=== PATIENT | female | born 1975 | race Caucasian/White ===

== ENCOUNTER → 2018-03-15 12:24 | Outpatient (CLI) | payer MEDICAID, SELFPAY ==
[2018-03-15 13:41] LABS: Color, Urine Yellow (Yellow); Glucose, Dipstick Normal (Normal); Ketone-Dipstick Negative (Negative); Leukocyte Esterase-Dipstick 500 /ul (Negative); Nitrite-Dipstick Negative (Negative); Occult Blood-Urine Negative /ul (Negative); Protein-Dipstick Negative (Negative); Specific Gravity, Urine 1.015 (1.002-1.030); Urine Bilirubin Dipstick Negative (Negative); Urine Clarity Sl. Cloudy (Clear); Urine Urobilinogen Normal (Normal); Urine pH 6.5 (5.0 - 8.0)
[2018-03-15 13:42] LABS: Absolute Lymphocyte Count 1.59 X10^3/ul (0.83-4.51); Absolute Neutrophil Count 9.1 X10^3/uL (2.0-7.7); Basophil# 0.02 X10^3/uL; Basophil% 0.2 % (0-1); Eosinophil# 0.15 X10^3/uL; Eosinophils% 1.3 % (0-5); Hematocrit 36.5 % (37-47); Hemoglobin 11.5 g/dl (12.0-15.0); Lymphocyte # 1.59 X10^3/ul (4.0); Lymphocyte % 13.8 % (19-41); Mean Corp Hgb Conc 31.5 g/gl (32-36); Mean Corpuscular Hgb 25.3 pg (27.0-32.0); Mean Corpuscular Volume 80.4 fL (81-99); Mean Platelet Vol. 10.9 fl (6.2-12.0); Monocyte# 0.71 X10^3/uL; Monocyte% 6.1 % (0-10); Neutrophil # 9.08 X10^3/uL (2.7-7.7); Neutrophil % 78.5 % (47-70); Platelet Count 299 K/mm3 (150-450); RBC Distribution Width CV 16.3 % (11.6-14.6); RBC Distribution Width SD 47.8 fl (35.1-43.9); Red Blood Count 4.54 M/mm3 (4.2-5.4); White Blood Count 11.6 K/mm3 (4.4-11.0)
[2018-03-15 13:43] LABS: POSITIVE COUNT NO; POSITIVE DIFFERENTIAL NO; POSITIVE MORPHOLOGY NO
[2018-03-15 13:48] LABS: Amphetamine Urine VISTA NEGATIVE (<1000 ng/mL); Barbiturate Urine VISTA NEGATIVE (< 200 ng/mL); Benzodiazepine Urine VISTA NEGATIVE (< 200 ng/mL); Cocaine Urine VISTA NEGATIVE (< 300 ng/mL); Ecstacy Urine VISTA NEGATIVE (< 500 ng/mL); Methadone Urine VISTA NEGATIVE (< 300 ng/mL); PCP Urine VISTA NEGATIVE (< 25 ng/mL); THC Urine VISTA NEGATIVE (< 50 ng/mL); Vista UDS pH Range 6
[2018-03-15 14:05] LABS: T4 Free Direct 1.18 ng/dL (0.76-1.46); Thyroid Stim Hormone (TSH) 8.27 uIU/mL (0.358-3.74)
[2018-03-15 14:46] LABS: HIV - WCH Non-Reactive (Nonreactive); Rubella IgG 42.5 IU/mL
[2018-03-15 17:45] LABS: Vitamin D,25 Hydroxy 25.3 ng/mL (29.95-100.01)
[2018-03-15 18:49] LABS: Chlamydia Trachomatis by PCR Negative (Negative); Neisserai gonorrhoeae by PCR Negative (Negative); Probe Check PASS; Sample Adequacy Control PASS; Specimen Processing Control PASS
[2018-03-19 09:54] LABS: Anti-Thyroglobulin AB < 1.0 IU/mL (0.0-0.9); HEPATITIS B SURFACE AG Negative (Negative); Hep C Antibodies <0.1 s/co ratio (0.0-0.9); Thyroglobulin, Serum Qt. < 0.1 ng/mL (1.5-38.5)
[2018-03-22 02:32] LABS: Prenatal RPR NONREACTIVE (NONREACTIVE)
--- OUTSIDE RECORDS SUMMARY | 2018-05-10 11:03 | XMS RPT_ITS ---
:1975 Author Organization OHIP Care Team Providers Name Role Phone ABE RANGEL Attending Unavailable Brunilda Lovelace Attending Unavailable Brunilda Lovelace Referring Unavailable Primay Care Physicia, No Primary Care Unavailable ABE RANGEL Consulting Unavailable Earnestine-Brunilda Don Attending Unavailable Primay Care Physicia, No Primary Care Unavailable PROBLEMS PROBLEMS DATE TYPE CONDITION / CODE ATTENDING STATUS SOURCE 03/22/2018 Unknown D64.9 - Anemia, [place], Active [place] unspecified / [facility] D64.9(ICD-10) Hospital Repository 03/15/2018 Unknown Z34.81 - Encounter [place] Active [place] for supervision of [facility] other normal Hospital , first Repository trimester / Z34.81(ICD-10) 03/15/2018 Unknown E03.9 - [place], Active [place] Hypothyroidism, [facility] unspecified / Hospital E03.9(ICD-10) Repository 03/15/2018 Unknown C73 - Malignant [place], Active [place] neoplasm of thyroid [facility] gland / C73(ICD-10) Hospital Repository 03/15/2018 Unknown Z11.3 - Encounter [place] Active [place] for screening for [facility] infections with a Hospital predominantly Repository sexual mode of transmission / Z11.3(ICD-10) PROCEDURES PROCEDURES No Procedure Records FoundRESULTS RESULTS IRON+IRON BINDING Collected: 03/22/2018 Status: F Source: [facility] 3:15 PM [facility] Order Comment: Comments: N TYPE CODE TESTS RESULT OUT OF RANGE REFERENCE UNITS LAB L503.6075 250-450 ug/dL TIBC Normal 398 LAB L503.6150 50-170 ug/dL IRON Normal 57 LAB L503.6250 15.0-55.0 % Low IRON SATURATION 14.3 Performed By: #### L503.6030, L503.6550 #### [facility] [address] [place], [place], [address] FERRITIN Collected: 03/22/2018 Status: F Source: [facility] 3:15 PM [facility] Order Comment: Comments: N TYPE CODE TESTS RESULT OUT OF REFERENCE UNITS RANGE LAB L503.6550 8-252 ng/mL Low FERRITIN 7 Performed By: #### L503.6030, L503.6550 #### [facility] [address] [place], [place], [address] HEMOGLOBINOPATHY PROFILE Collected: 03/22/2018 Status: F Source: [facility] 3:15 PM [facility] Order Comment: Comments: N TYPE CODE TESTS RESULT OUT OF REFERENCE UNITS RANGE LAB L3300.220 Negative 5 HGB SOLUBILITY Normal Negative LAB L3300.221 96.4-98.8 % 0 Hgb A Normal 97.7 LAB L3300.223 0.0 % 0 Hgb S 0 Normal LAB L3300.224 0.0 % 0 Hgb C 0 Normal LAB L3300.225 1.8-3.2 % 0 Hgb A2 Normal 2.3 LAB L3300.225 0.0-2.0 % 5 Hgb F 0 Normal LAB L3300.226 . 5 HGB VARIANT Normal Test not performed LAB L3300.227 . 5 INTERPRETATION Normal Comment Result Comment: Normal adult hemoglobin present. Performed By: #### L3300.2202, L3400.3800 #### [facility] (refer to report for specific site) refer to report for address and phone number TRANSFERRIN Collected: 03/22/2018 Status: F Source: [facility] 3:15 PM [facility] Order Comment: Comments: N TYPE CODE TESTS RESULT OUT OF RANGE REFERENCE UNITS LAB L3400.3800 200-370 mg/dL Normal TRANSFERRN 4937 323 Result Comment: Performed at: - [facility] [address] [id number] Escalator Mechanic: Ever Slade PhD, Phone: [phone] Performed By: #### L3300.2202, L3400.3800 #### [facility] (refer to report for specific site) refer to report for address and phone number CNPN Observed: 03/18/2018 Status: COMPLETED Source: [place] 12:00 AM [facility] REPOSITORY Telephone ([employer]) SHILPA VALERA ([id number]) 1975 F Date Time Provider Department 03/18/18 ABE RANGEL During your visit today, we recorded the following information about you: Last [place] Ma 03/18/2018 11:21 AM Signed Received outside lab results from [facility]. Placed in Dr. Rangel's in box for review. Abe Rangel MD, MD 03/18/2018 1:09 PM Signed Call and tell to increase levothyroxine from 0.137 mg to 0.15 mg daily. Check TSH again in 6-8 weeks, please mail lab letter. Thanks. The following approved medication requests have been transmitted electronically. Signed Prescriptions Disp Refills levothyroxine (SYNTHROID) 150 mcg tablet 90 tablet 3 Sig: Take 1 tablet by mouth once daily. Authorizing Provider: ABE RANGEL MD Nicole Jelar Ma 03/18/2018 1:49 PM Signed Called and spoke with patient, and she wanted to inform you that she is . She had a visit with her Party Plan Sales Agent and she looked at labs as well and she agreed with increase. Do you still want her to start the new RX? If you agree no need to call patient. Only call patient if we want to change something. Mailed lab letter Abe Rangel MD, 03/20/2018 10:20 AM Signed Yes go ahead and increase the dose but get repeat blood test in April (one month). Send new lab letter printed today. Sylvia Stock RN 03/20/2018 10:43 AM Signed Notified patient of Dr Rangel's message. Patient verbalized understanding. Printed and mailed lab slip to the home address. Encounter closed. Sylvia Stock RN 03/21/2018 9:14 AM Signed Received a VM on nurses line from Dr Don (OBGYN) regarding whether this patient's Levothyroxine has been increased. Called and left a detailed VM on her cell at [phone] that the patient's dose has been increased and the patient was notified of this yesterday it is now at 150 mcg daily. She will need repeat labs in April 2018. Allergies As of Date: 03/18/2018 Noted Allergy Reaction PENICILLINS 04/20/2010 16 - Unknown VANCOMYCIN 04/20/2010 16 - Unknown Date Reviewed: 12/28/2017 Reviewed by: Priscila Shipley Ma - Fully Assessed Reason for Visit: Outside Lab Results [753] Cmt: [facility] Primary Visit Diagnosis:Postsurgical hypothyroidism [E89.0] Order(s):levothyroxine (SYNTHROID) 150 mcg tabletTake 1 tablet by mouth once daily.Disp: 90 tabletRfl: 3 Prescriptions as of 03/18/2018 Sig: LEVOTHYROXINE 150 MCG TABLET Take 1 tablet by mouth once d* FERROUS SULFATE 325 MG (65 MG* Take 1 tablet by mouth DAILY * * CALCIUM CARBONATE 500 MG (1,2* Take 2 tablets by mouth once * Problem List As Of Date 03/18/2018 Noted Resolved Multinodular thyroid [E04.2] INVALID FOR*05/06/2010 History of thyroid cancer [Z85.850] INVALID FOR* More... Postsurgical hypothyroidism [E89.0] INVALID FOR* Hypocalcemia [E83.51] INVALID FOR*04/24/2014 Anxiety disorder [F41.9] INVALID FOR* Chronic tachycardia [R00.0] INVALID FOR* Vitamin D deficiency [E55.9] INVALID FOR* Pica [F50.89] INVALID FOR*09/29/2015 More... Prescriptions ordered this encounter Disp Refills Start End LEVOTHYROXINE 150 MCG TABLET 90 t* 3 03/18/2018 Route: ORAL Sig: Take 1 tablet by mouth once daily. Medications Discontinued During This Encounter levothyroxine (SYNTHROID) 137 mcg ta* 90 t* 3 12/28/2017 03/18/2018 Route: ORAL Sig: Take 1 tablet by mouth once daily. Disc: Dosage adjustment Letter Text Shilpa Valera Staff Tank Systems Maintainer Abe Rangel MD, [place] [address] Office: [phone] March 18, 2018 Shilpa Valera Date of : 1975 Please obtain the following laboratory tests on Ms. Valera on or after 04/29/2018. Tests: TSH Free T4. Diagnosis(es): Hypothyroidism (E03.9). Please fax result to [phone]. Thank you. Abe Rangel MD (Electronically signed to expedite processing) Letter Text Shilpa Valera [employer] Systems Maintainer Abe Rangel MD, [place] [address] Office: [phone] March 20, 2018 Shilpa Valera Date of : 1975 Please obtain the following laboratory tests on Ms. Valera in 04/2018. Tests: TSH Free T4. Diagnosis(es): Hypothyroidism (E03.9). Please fax result to [phone]. Thank you. Abe Rangel MD (Electronically signed to expedite processing) Encounter Status:Closed by LAST [place] MA on 03/18/18 URINE DRUG SCREEN Collected: 03/15/2018 Status: F Source: [facility] 12:34 PM [facility] Order Comment: List of Drugs Taken or Suspected? UNK TYPE CODE TESTS RESULT OUT OF RANGE REFERENCE UNITS LAB L505.0075 TO BE Normal CONFIRMED Result Comment: CONFIRMATORY TESTING FOR ALL POSITIVE URINE DRUG SCREEN RESULTS WILL ONLY BE SENT OUT UPON PHYSICIAN ORDER. [facility]IST[facility] Urine Drug Screen methods provide only preliminary analytical test results. A more specific alternate chemical method must be used in order to obtain a confirmed analytical result. Gas chromatography/mass spectrometery (GC/MS) is the preferred confirmatory method. Clinical consideration and professional judgement should be applied to any drug of abuse test result, particularly when preliminary positive results are used. URINE TCA TESTING MUST BE ORDERED SEPARATELY. USE TEST MNEMONIC: [facility] LAB L505.5005 VISTA UDS PH 6 Normal LAB L505.5015 <1000 ng/mL AMPHETAMINES Normal NEGATIVE LAB L505.5025 < 200 ng/mL BARBITIURATES Normal NEGATIVE LAB L505.5035 < 200 ng/mL BENZODIAZIPINE Normal NEGATIVE LAB L505.5045 < 300 ng/mL COCAINE Normal NEGATIVE LAB L505.5055 < 500 ng/mL ECSTACY Normal NEGATIVE LAB L505.5065 < 300 ng/mL METHADONE Normal NEGATIVE LAB L505.5075 < 300 ng/mL OPIATES Normal NEGATIVE LAB L505.5085 < 25 ng/mL PCP Normal NEGATIVE LAB L505.5095 < 50 ng/mL THC Normal NEGATIVE Performed By: #### L505.5000 #### [facility] [place], [address] URINALYSIS, ROUTINE Collected: 03/15/2018 Status: F Source: [facility] ([facility]) 12:34 PM [facility] RE[facility] Order Comment: How was Urine Obtained? CLEAN CATCH TYPE CODE TESTS RESULT OUT OF RANGE REFERENCE UNITS LAB L400.3000 Yellow COLOR Normal Yellow LAB L400.3050 Clear Normal CLARITY Sl. Cloudy LAB L400.3200 Normal mg/dl Normal GLUCOSE, UR Normal LAB L400.3300 Negative mg/dL Normal BILIRUBIN URINE Negative LAB L400.3400 Negative mg/dl Normal KETONE UR Negative LAB L400.3465 1.002-1.030 Normal SP.GR. DIPSTX 1.015 LAB L400.3550 5.0 - 8.0 pH UR Normal 6.5 LAB L400.3600 Negative mg/dl PROT Normal DIPSTX Negative LAB L400.3700 Normal mg/dl Normal UROBILI Normal LAB L400.3750 Negative Normal NITRITE UR Negative LAB L400.3780 Negative /ul Normal OCCULT BLOOD-UR Negative LAB L400.3800 Negative /ul High LEUK ESTERASE 500 Performed By: #### L400.2010 #### [facility] [address] [place], [address] CBC W/DIFF, AUTOMATED Collected: 03/15/2018 Status: F Source: [place] 12:34 PM [facility] REPOS[facility] TYPE CODE TESTS RESULT OUT OF RANGE REFERENCE UNITS LAB L100.1000 4.4-11.0 K/mm3 High WBC 11.6 LAB L100.1200 4.2-5.4 M/mm3 Normal RBC 4.54 LAB L100.1300 12.0-15.0 g/dl Low HGB 11.5 LAB L100.1400 37-47 % Low HCT 36.5 LAB L100.1500 81-99 fL Low MCV 80.4 LAB L100.1600 27.0-32.0 pg Low MCH 25.3 LAB L100.1700 32-36 g/gl Low MCHC 31.5 LAB L100.1810 11.6-14.6 % High RDW CV 16.3 LAB L100.1820 35.1-43.9 fl High RDW SD 47.8 LAB L100.1900 150-450 K/mm3 Normal PLT 299 LAB L100.2000 6.2-12.0 fl Normal MPV 10.9 LAB L100.2100 47-70 % High NEUT% 78.5 LAB L100.2200 19-41 % Low LY% 13.8 LAB L100.2300 0-10 % Normal MONO% 6.1 LAB L100.2400 0-5 % Normal EO% 1.3 LAB L100.2500 0-1 % Normal BASO% 0.2 LAB L100.2550 0.0-0.9 % Normal IM GRAN % 0.100 Result Comment: IG% - Immature Granulocytes (promyelocytes, myelocytes and metamyelocytes) > 1% indicates that a LEFT SHIFT is Present. LAB L100.2620 2.0-7.7 X10 3/uL High Absolute Neut 9.1 LAB L100.2720 0.83-4.51 X10 3/ul Normal Absolute Lymph 1.59 Performed By: #### L100.0100 #### [facility] [address] [place], [address] THYROID STIM HORMONE Collected: 03/15/2018 Status: F Source: [place] (TSH) 12:34 PM [facility] REPOSIT[facility] TYPE CODE TESTS RESULT OUT OF RANGE REFERENCE UNITS LAB L501.9520 0.358-3.74 uIU/mL High TSH 8.27 Performed By: #### L501.9520, L506.0400 #### [facility] [address] [place], [address] T4 FREE DIRECT Collected: 03/15/2018 Status: F Source: [place] 12:34 PM [facility] REPOS[facility] TYPE CODE TESTS RESULT OUT OF RANGE REFERENCE UNITS LAB L506.0400 0.76-1.46 ng/dL Normal T4 FREE 1.18 DIRECT Performed By: #### L501.9520, L506.0400 #### [facility] [address] [place], [address] T AND S-NO Collected: 03/15/2018 Status: F Source: [facility] [place] W/PNP 12:34 PM [facility] REPOSIT[facility] Order Comment: Reason for Type AND Screen/Red Cells: Surgery? N TYPE CODE TESTS RESULT OUT OF RANGE REFERENCE UNITS LAB B10.0800 A Normal BLOOD POSITIVE TYPE GEL LAB B100.4050 Normal Ab SCREEN NEGATIVE GEL Performed By: #### B100.7550 #### [facility] [address] [place], [address] RUBELLA IGG Collected: 03/15/2018 Status: F Source: [place] 12:34 PM [facility] REPOS[facility] TYPE CODE TESTS RESULT OUT OF RANGE REFERENCE UNITS LAB L509.4000 IU/mL Normal Rubella IgG 42.5 Result Comment: Antibody results Interpretation of Immune Status < 5 IU/ml Presumed Non-immune 5 - < 10 IU/ml Equivocal > or = 10 IU/ml Presumed Immune Performed By: #### L509.4000, L3890.6005, L506.1000 #### [facility] [address] [place], [address] HIV - WCH Collected: 03/15/2018 Status: F Source: [facility] 12:34 PM [facility] TYPE CODE TESTS RESULT OUT OF RANGE REFERENCE UNITS LAB L3890.6005 Nonreactive Normal HIV - WC Non-Reactive Performed By: #### L509.4000, L3890.6005, L506.1000 #### [facility] [address] [facility] [place], [place], [address] VITAMIN D,25 HYDROXY Collected: 03/15/2018 Status: F Source: [facility] 12:34 PM [facility] TYPE CODE TESTS RESULT OUT OF REFERENCE UNITS RANGE LAB L506.1000 29.95-100.01 ng/mL Low Vitamin D 25.3 25-OH Result Comment: Vitamin D 25(OH) Status Range Deficiency <20 ng/mL (50nmol/L) Insuffciency 20 - 30 ng/mL (50 - 75 nmol/L) Sufficiency 30 - 100 ng/mL (75 - 250 nmol/L) Toxicity >100 ng/mL (>250 nmol/L) Performed By: #### L509.4000, L3890.6005, L506.1000 #### [facility] [address] [facility] [place], [place], [address] HEPATITIS B SURFACE Collected: 03/15/2018 Status: F Source: [facility] 12:34 PM [facility] REPOS[facility] TYPE CODE TESTS RESULT OUT OF RANGE REFERENCE UNITS LAB L3100.0400 Negative Normal HB Negative SURF AG Result Comment: Performed at: - [facility] [id number] Escalator Mechanic: Ever Slade PhD, Phone: [phone] Performed By: #### L3100.0390, L3100.0633, L3499.5645 #### [facility] (refer to report for specific site) refer to report for address and phone number HEPATITIS C ANTIBODIES Collected: 03/15/2018 Status: F Source: [facility] 12:34 PM [facility] TYPE CODE TESTS RESULT OUT OF RANGE REFERENCE UNITS LAB L3100.0650 0.0-0.9 s/co ratio Normal HEP C AB <0.1 Result Comment: Negative: < 0.8 Indeterminate: 0.8 - 0.9 Positive: > 0.9 The CDC recommends that a positive HCV antibody result be followed up with a HCV Nucleic Acid Amplification test (546304). Performed By: #### L3100.0390, L3100.0625, L3300.6820 #### [facility] (refer to report for specific site) refer to report for address and phone number THYROGLOBULIN W/ANTI-TG Collected: 03/15/2018 Status: F Source: [facility] 12:34 PM [facility]POS[facility] TYPE CODE TESTS RESULT OUT OF RANGE REFERENCE UNITS LAB L3300.7025 0.0-0.9 IU/mL Normal ANTI-TG < 1.0 AB Result Comment: Thyroglobulin Antibody measured by [facility] [employer] LAB L3400.1030 1.5-38.5 ng/mL Low THYROGLOB < 0.1 Result Comment: According to the National Academy of Clinical Biochemistry, the reference interval for Thyroglobulin (TG) should be related to euthyroid patients and not for patients who underwent thyroidectomy. TG reference intervals for these patients depend on the residual mass of the thyroid tissue left after surgery. Establishing a post-operative baseline is recommended. The assay limit of quantitation is 0.1 ng/mL Thyroglobulin measured by [facility] Elliott Immunometric Assay Performed By: #### L3100.0390, L3100.0625, L3300.6820 #### [facility] (refer to report for specific site) refer to report for address and phone number RPR Collected: 03/15/2018 Status: F Source: [facility] 12:34 PM [facility] TYPE CODE TESTS RESULT OUT OF REFERENCE UNITS RANGE LAB L700.5100 NONREACTIVE Normal RPR NONREACTIVE Performed By: #### L700.5100 #### [facility] [address] [place], [place], [address] CT/NG WCH BY PCR Collected: 03/15/2018 Status: F Source: [facility] 11:00 AM [facility] TYPE CODE TESTS RESULT OUT OF RANGE REFERENCE UNITS LAB L8200.2100 Negative Normal Chlam Negative Trac PCR LAB L8200.2200 Negative Normal NG by Negative PCR Performed By: #### L8200.2000 #### [facility] [address] [place] 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 Total thyroidectomy was done 04/20/2010, showed small multifocal papillary thyroid cancers (0.6 cm and 0.3 cm). However, the larger tumor had extrathroidal extension. No nodes noted, however. Received 102.8 mCi 131- iodine on 05/13/2010. Post-dose scan showed neck uptake and bilateral breast uptake (had been lactating). TSH-stimulated (TSH 123) thyroglobulin was undetectable (no antibodies) in 05/2011. She is taking levothyroxine 0.137 mg qd. She has had a tonsillectomy. Other medications: Valium prn. Family history unknown, she was adopted. Allergic to penicillin, vancomycin. Denies exposure to ionizing radiation in her past. . Current Outpatient Prescriptions on File Prior to Visit: levothyroxine (SYNTHROID) 137 mcg tablet TAKE ONE TABLET BY MOUTH ONCE DAILY ferrous sulfate 325 mg (65 mg iron) tablet Take 1 tablet by mouth DAILY AT 6 PM. lattlxf-unihmzpbb-tmtmtyw D3 (CALCIUM 500+D) 500 mg(1,250mg) -200 unit ORAL per tablet Take 2 tablets by mouth once daily. Review of patient's allergies indicates: Penicillins Unknown Vancomycin Unknown Review of systems: Patient notes no weight changes, fever, fatigue, weakness, change in balance or sensation, visual problems, hearing changes, dizziness, trouble swallowing, nasal difficulties, shortness of breath, chest pain, change in exertional tolerance, foot or leg problems, skin lesions, abdominal pain, diarrhea, constipation, urinary problems, incontinence, back pain, joint pains, anxiety, depression, insomnia, menstrual difficulties, breast lesions/pain/mass. Remainder of review of systems was unremarkable. BP 131/77 Pulse 108 Wt 63.5 kg (140 lb) SpO2 100% BMI 23.66 kg/m? Weight down 12 pounds since 09/2015. Blood pressure normal, pulse elevated. General appearance: Well-appearing female, alert, in no acute distress, well-hydrated, well nourished. Skin: Skin color, texture, turgor normal, no suspicious rashes or lesions Head: normocephalic, no masses, lesions, tenderness or abnormalities Eyes: Anicteric sclera. Pupils are equally round. Extraocular movements are intact. Ears: not examined Nose/Sinuses: Nares normal. No drainage or sinus tenderness. Oropharynx: Lips, mucosa, and tongue normal, teeth and gums not examined. Neck: Supple, no adenopathy; no palpable thyroid enlargement. Well-healed thyroidectomy incision line. Lungs: Breathing unlabored. Heart: RRR, tachycardic. No ectopy Abdomen: deferred Musculoskeletal: Spine range of motion not tested. Muscular strength intact, No joint swelling, deformity, or tenderness Neuro: Gait normal. No recent lab results. IMPRESSION: Papillary thyroid cancer ? normal neck exam, check thyroglobulin level Hypothyroidism ? check TFTs on the current levothyroxine dose Tachycardia - chronic. No evidence of anemia when checked in 2015. 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 Total thyroidectomy was done 04/20/2010, showed small multifocal papillary thyroid cancers (0.6 cm and 0.3 cm). However, the larger tumor had extrathroidal extension. No nodes noted, however. Received 102.8 mCi 131-iodine on 05/13/2010. Post-dose scan showed neck uptake and bilateral breast uptake (had been lactating). TSH-stimulated (TSH 123) thyroglobulin was undetectable (no antibodies) in 05/2011. She is taking levothyroxine 0.137 mg qd. She has had a tonsillectomy. Other medications: Valium prn. Family history unknown, she was adopted. Allergic to penicillin, vancomycin. Denies exposure to ionizing radiation in her past. . Current Outpatient Prescriptions on File Prior to Visit: levothyroxine (SYNTHROID) 137 mcg tablet TAKE ONE TABLET BY MOUTH ONCE DAILY ferrous sulfate 325 mg (65 mg iron) tablet Take 1 tablet by mouth DAILY AT 6 PM. tphhhad-szvhjlful-gozxzoc D3 (CALCIUM 500+D) 500 mg(1,250mg) -200 unit ORAL per tablet Take 2 tablets by mouth once daily. Review of patient's allergies indicates: Penicillins Unknown Vancomycin Unknown Review of systems: Patient notes no weight changes, fever, fatigue, weakness, change in balance or sensation, visual problems, hearing changes, dizziness, trouble swallowing, nasal difficulties, shortness of breath, chest pain, change in exertional tolerance, foot or leg problems, skin lesions, abdominal pain, diarrhea, constipation, urinary problems, incontinence, back pain, joint pains, anxiety, depression, insomnia, menstrual difficulties, breast lesions/pain/mass. Remainder of review of systems was unremarkable. BP 131/77 Pulse 108 Wt 63.5 kg (140 lb) SpO2 100% BMI 23.66 kg/m? Weight down 12 pounds since 09/2015. Blood pressure normal, pulse elevated. General appearance: Well-appearing female, alert, in no acute distress, well-hydrated, well nourished. Skin: Skin color, texture, turgor normal, no suspicious rashes or lesions Head: normocephalic, no masses, lesions, tenderness or abnormalities Eyes: Anicteric sclera. Pupils are equally round. Extraocular movements are intact. Ears: not examined Nose/Sinuses: Nares normal. No drainage or sinus tenderness. Oropharynx: Lips, mucosa, and tongue normal, teeth and gums not examined. Neck: Supple, no adenopathy; no palpable thyroid enlargement. Well-healed thyroidectomy incision line. Lungs: Breathing unlabored. Heart: RRR, tachycardic. No ectopy Abdomen: deferred Musculoskeletal: Spine range of motion not tested. Muscular strength intact, No joint swelling, deformity, or tenderness Neuro: Gait normal. No recent lab results. IMPRESSION: Papillary thyroid cancer ? normal neck exam, check thyroglobulin level Hypothyroidism ? check TFTs on the current levothyroxine dose Tachycardia - chronic. No evidence of anemia when checked in 2015. PLAN: Check TSH, free T4, thyroglobulin Will call with results Return in 12 months, sooner prn Abe Rangel MD, FACP Abe Rangel MD, MD 12/28/2017 10:27 AM Signed Get labs done at [facility]. Will call with results. See me again in 12 months. Referring Provider: SELF [200] Allergies As of Date: 12/28/2017 Noted Allergy Reaction PENICILLINS 04/20/2010 16 - Unknown VANCOMYCIN 04/20/2010 16 - Unknown Date Reviewed: 12/28/2017 Reviewed by: Priscila Shipley Ma - Fully Assessed Reason for Visit: Follow Up [171] Cmt: thyroid Primary Visit Diagnosis:Postsurgical hypothyroidism [E89.0] Other Visit Diagnoses:Chronic tachycardia [R00.0] History of thyroid cancer [Z85.850] Order(s):levothyroxine (SYNTHROID) 137 mcg tabletTake 1 tablet by mouth once daily.Disp: 90 tabletRfl: 3 Prescriptions as of 12/28/2017 Sig: LEVOTHYROXINE 137 MCG TABLET Take 1 tablet by mouth once d* FERROUS SULFATE 325 MG (65 MG* Take 1 tablet by mouth DAILY * * CALCIUM CARBONATE 500 MG (1,2* Take 2 tablets by mouth once * Problem List As Of Date 12/28/2017 Noted Resolved Multinodular thyroid [E04.2] INVALID FOR*05/06/2010 History of thyroid cancer [Z85.850] INVALID FOR* More... Postsurgical hypothyroidism [E89.0] INVALID FOR* Hypocalcemia [E83.51] INVALID FOR*04/24/2014 Anxiety disorder [F41.9] INVALID FOR* Chronic tachycardia [R00.0] INVALID FOR* Vitamin D deficiency [E55.9] INVALID FOR* Pica [F50.89] INVALID FOR*09/29/2015 More... Other instructions from your clinician: Get labs done at [facility]. Will call with results. See me again in 12 months. Prescriptions ordered this encounter Disp Refills Start End LEVOTHYROXINE 137 MCG TABLET 90 t* 3 12/28/2017 Route: ORAL Sig: Take 1 tablet by mouth once daily. Medications Discontinued During This Encounter levothyroxine (SYNTHROID) 137 mcg ta* 90 t* 3 02/08/2017 12/28/2017 Sig: TAKE ONE TABLET BY MOUTH ONCE DAILY Disc: Reason for discontinue is not on file. Letter Text Shilpa Valera [employer] Maintainer Abe Rangel MD, [place] [address] Office: [phone] December 28, 2017 Shilpa Valera Date of : 1975 Please obtain the following laboratory tests on Ms. Valera. Tests: TSH Free T4. Diagnosis(es): Hypothyroidism (E03.9). Please fax result to [phone]. Thank you. Abe Rangel MD (Electronically signed to expedite processing) Letter Text Shilpa Valera [employer] Maintainer Abe Rangel MD, [place] [address] Office: [phone] December 28, 2017 Shilpa Valera Date of : 1975 Please obtain the following laboratory tests on Ms. Valera. Tests: TSH Free T4 Thyroglobulin. Diagnosis(es): Hypothyroidism (E03.9) Thyroid Cancer (C73). Please fax result to [phone]. Thank you. Abe Rangel MD (Electronically signed to expedite processing) Encounter Status:Closed by ABE RANGEL MD on 12/30/17 ALLERGIES ALLERGIES DATE TYPE / CODE NAME / CODE REACTION SEVERITY SOURCE 04/20/2010 Drug PENICILLINS UNKNOWN [facility] Class/[address] [place] 1003(SNOMED Repository CT) 04/20/2010 DRUG VANCOMYCIN UNKNOWN [facility] INGREDI/419 [facility] 516491(SNOM Repository ED CT) ENCOUNTERS ENCOUNTERS ADMIT/DISCHARGE ACCOUNT ADMITTING ENCOUNTER LOCATION SOURCE NUMBER CLASS 03/22/2018 [id number] Ambulatory [facility] ing:WOBLAB Repository 03/15/[id number] [facility] ing:WOBLAB Repository 12/28/2017/12/29/19 [id number] Ambulatory [address] Repository PAYERS PAYERS ENCOUNTER GUARANTOR PAYER SUBSCRIBER SOURCE 03/22/2018 SHILPA A Primary SHILPA A Lou [id number] Insurance:TERRYLYNNE KAROMARCB: [facility] [id number] [place] [address] PLANPolicy Number: Repository [id number]: 330 [id number] [phone] () Date:[id number] [place] [address] [place] [address]CK: 03/22/2018 Secondary NOT GIVENUNK Lou Insurance:SELF PAY [facility] Number: Effective Repository Date:2018-03-22 03/15/2018 SHILPA A Primary SHILPA A Lou [id number] Insurance:ANDERSON RUDDB: [facility] [id number]ANPolicy Number: Repository [id number]: 330 [id number] [phone] () Date:[id number] [address] [place] [address] [id number]: 03/15/2018 Secondary NOT GIVENUNK Lou Insurance:SELF PAY [facility] Number: Effective Repository Date:2018-03-15
== END ==
LOC: LAB 12:31 → WOBLAB 14:15
PROVIDERS: Referring Provider Obstetrics & Gynecology; Visit Provider Obstetrics & Gynecology
DX: O9A.111 Malignant neoplasm complicating pregnancy, first trimester (principal); C73 Malignant neoplasm of thyroid gland; E03.9 Hypothyroidism, unspecified; Z3A.00 Weeks of gestation of pregnancy not specified
CPT/HCPCS: 36415; 80307; 81002; 82306; 84432; 84439; 84443; 85025; 86703; 86762; 86800; 86803; 87340; 87491; 87591

== ENCOUNTER → 2018-03-22 15:12 | Outpatient (CLI) | payer MEDICAID, SELFPAY ==
[2018-03-22 16:38] LABS: Ferritin 7 ng/mL (8-252); Iron 57 ug/dL (50-170); Iron Binding Capacity,Total 398 ug/dL (250-450); PERCENT IRON SATURATION 14.3 % (15.0-55.0)
[2018-03-25 20:11] LABS: Hemoglobin Fraction A 97.7 % (96.4-98.8); Hemoglobin Fraction A2 2.3 % (1.8-3.2); Hemoglobin Fraction C 0 % (0.0); Hemoglobin Fraction F 0 % (0.0-2.0); Hemoglobin Fraction S 0 % (0.0); Hemoglobin Solubility,Panel Negative (Negative)
[2018-03-26 09:42] LABS: Transferrin 323 mg/dL (200-370)
== END ==
PROVIDERS: Visit Provider Obstetrics & Gynecology
DX: D64.9 Anemia, unspecified (principal)
CPT/HCPCS: 36415; 82728; 83021; 83540; 83550; 84466; 85660

== ENCOUNTER 2018-04-14 20:17 | Emergency (ER) | payer MEDICAID, SELFPAY ==
[2018-04-14 20:18] VITALS: BP 152/95; PULSE 118; RESP 16; TEMP 37.5; O2SAT 100; BMI 25.2
--- NOTE | 2018-04-14 22:54 | ED.DCSUM_ITS ---
History of Present Illness Chief Complaint: Vag Bleeding Informant: Patient Onset: Hours - about 24 Context: Sudden Onset Timing: Waxes and wanes Quality: spotting, now mild bleeding Location: vaginal Current Severity: Mild Maximum Severity: Mild Worsened by: nothing Relieved by: nothing Associated Symptoms: abd bloating recently, but started iron and is constipated Narrative: 11 weeks , . Started spotting spontaneously about 24 hours ago, no recent injuries or falls. No systemic symptoms except for the aforementioned abdominal bloating for several days because of feeling constipated, she suspects from taking iron. - Past Medical History (1) Iron deficiency anemia Status: Chronic (2) Thyroid cancer Status: Chronic Past Medical History - Allergies and Home Meds Allergies/Adverse Reactions: Allergies Penicillins Allergy (Verified 04/14/18 20:18) Hives vancomycin Allergy (Verified 04/14/18 20:18) Hives Primary Care Physician: Care Physician,No Primary [Primary Care Provider] - Lives: With Family Smoking Status: Never smoker Review of Systems General: Denies: Chills, Fever, Sweats Eyes: Denies: Visual changes - bilaterally, Diplopia ENT: Denies: Rhinorrhea, Sore throat Cardiovascular: Denies: Chest pain, Palpitations Respiratory: Denies: Dyspnea, Cough, Dyspnea on exertion Gastrointestinal: Reports: Constipation - And bloating. Denies: Abdominal pain, Nausea, Vomiting, Diarrhea, Melena, Hematochezia Genitourinary: Reports: Frequency, - - Vaginal bleeding. See HPI.. Denies: Dysuria, Hematuria Musculoskeletal: Denies: Back pain, Swelling, Extremity Pain Skin: Denies: Rash, Abscess Neurological: Denies: Headache, Weakness, Numbness Psych: Denies: Depression, Anxiety Endocrine: Denies: Polyuria, Polydipsia Hematologic: Denies: Easy bruising, Easy bleeding Allergy: Denies: Swelling of the mouth, Swelling of the tongue Physical Exam Vital Signs/Narrative: Vital Signs Temp Pulse Resp BP Pulse Ox 04/14/18 20:18 99.5 F H 118 H 16 152/95 H 100 Inital Vital Signs reviewed: Yes General: Well nourished, Well developed, - - Well-appearing, NAD Head: Normocephalic, Atraumatic Eyes: Perrl, EOMI Neck: Supple, Nontender Cardiovascular: Regular rate, Regular rhythm, No murmurs Respiratory: No distress, CTA bilaterally, Chest nontender Abdomen: Soft, Nontender, Nondistended, Normal bowel sounds, - - Slightly gravid uterus, well below the umbilicus Skin: Normal color, No rash Neurological: Alert, Oriented x3, Cranial nerves II-XII grossly intact, Normal Strength, Normal Sensation Psychological: Normal affect Diagnostic/Tx/Re-eval Laboratory Tests 04/14/18 04/14/18 Range/Units 23:20 21:45 Urine Color Yellow (Yellow) Urine Clarity Clear (Clear) Urine pH 6.0 (5.0 - 8.0) Ur Specific [place] 1.015 (1.002-1.030) Urine Protein Negative (Negative) mg/dl Urine Glucose (UA) Normal (Normal) mg/dl Urine Ketones 50 H (Negative) mg/dl Urine Occult Blood 150 H (Negative) /ul Urine Nitrite Negative (Negative) Urine Bilirubin Negative (Negative) mg/dL Urine Urobilinogen Normal (Normal) mg/dl Ur Leukocyte Esterase Negative (Negative) /ul Urine RBC 0 SEEN (0-5) /hpf Urine WBC 0 SEEN (0-5) /hpf Ur Squamous Epith Cells 0-5 SEEN (5-10) /hpf Urine Bacteria 0 SEEN (None Seen) /hpf Urine Mucus 0 SEEN (<or=2+) /hpf Blood Type A POSITIVE - Medical Decision Making Urinalysis normal. Bedside ultrasound performed, there is good movement and heart rate is 158. Placenta is superior. Patient is reassured. Her blood type was not in our system, so we obtained it and she is a positive. No RhoGam indicated. Advised to follow-up with her body technician. She is comfortable with this plan. ED Disposition - Plan for ED Patient: Disposition: Home or Assisted Living Chief Complaint: Vag Bleeding Diagnosis: Threatened in first trimester Instructions: Bleeding During Early , ED Miscarriage Poss Referrals: Brunilda Lovelace MD [STAFF PHYSICIAN] - 1 Week (Call for appointment)
[2018-04-14 23:15] LABS: Bacteria 0 SEEN /hpf (None Seen); Mucous, Urine 0 SEEN /hpf (<or=2+); Red Blood Cells-Urine 0 SEEN /hpf (0-5); White Blood Cells 0 SEEN /hpf (0-5)
[2018-04-14 23:16] LABS: Color, Urine Yellow (Yellow); Glucose, Dipstick Normal (Normal); Ketone-Dipstick 50 mg/dl (Negative); Leukocyte Esterase-Dipstick Negative /ul (Negative); Nitrite-Dipstick Negative (Negative); Occult Blood-Urine 150 /ul (Negative); Protein-Dipstick Negative (Negative); Specific Gravity, Urine 1.015 (1.002-1.030); Urine Bilirubin Dipstick Negative (Negative); Urine Clarity Clear (Clear); Urine Urobilinogen Normal (Normal)
[2018-04-14 23:23] LABS: Squamous Epithelial Cells - UA 0-5 SEEN /hpf (5-10)
[2018-04-15 00:15] VITALS: BP 131/71; PULSE 91; RESP 16; O2SAT 96
== END 2018-04-15 00:16 | disposition home or self-care (01) ==
PROVIDERS: Emergency Provider Emergency Medicine
DX: O20.0 Threatened abortion (principal); O09.521 Supervision of elderly multigravida, first trimester; O99.011 Anemia complicating pregnancy, first trimester; D50.9 Iron deficiency anemia, unspecified; K59.00 Constipation, unspecified; Z79.899 Other long term (current) drug therapy; Z88.0 Allergy status to penicillin; Z85.850 Personal history of malignant neoplasm of thyroid; Z3A.11 11 weeks gestation of pregnancy
CPT/HCPCS: 36415; 81001; 86900; 99282

== ENCOUNTER → 2018-05-24 15:01 | Outpatient (CLI) | payer MEDICAID, SELFPAY ==
[2018-05-24 17:39] LABS: ALB/GLOB Ratio 0.9 RATIO (0.9-2.4); AST(SGOT) 11 U/L (15-37); Alanine Aminotransfer ALT/SGPT 15 U/L (13-56); Alkaline Phosphatase 54 U/L (45-117); Anion Gap 13 (5-15); BUN 7 mg/dL (7-18); BUN/Creat Ratio 12.9 RATIO (10-20); Calcium,Total 8.3 mg/dL (8.5-10.1); Chloride 105 mmol/L (98-107); Creatinine, Serum 0.54 mg/dL (0.55-1.02); EST Glomerular Filtration Rate 132 mL/min (>60); Est Glom Filt Rate - Afr Amer 160 mL/min (>60); Free T3 2.5 pg/mL (2.18-3.98); Globulin 3.2 g/dL (2.2-4.2); Glucose 102 mg/dL (74-106); Potassium 3.6 mmol/L (3.5-5.1); Protein, Total 6.2 g/dL (6.4-8.2); Sodium Level 140 mmol/L (136-145); T4 Free Direct 1.28 ng/dL (0.76-1.46)
== END ==
PROVIDERS: Visit Provider Obstetrics & Gynecology
DX: E03.9 Hypothyroidism, unspecified (principal)
CPT/HCPCS: 36415; 80053; 84439; 84443; 84481

== ENCOUNTER → 2018-08-16 14:06 | Outpatient (CLI) | payer MEDICAID, SELFPAY ==
[2018-08-16 16:02] LABS: Hemoglobin 10.4 g/dl (12.0-15.0); Mean Corp Hgb Conc 31.5 g/gl (32-36); Mean Corpuscular Hgb 27.2 pg (27.0-32.0); Mean Corpuscular Volume 86.4 fL (81-99); Mean Platelet Vol. 10.7 fl (6.2-12.0); Platelet Count 301 K/mm3 (150-450); RBC Distribution Width CV 14.3 % (11.6-14.6); RBC Distribution Width SD 44.5 fl (35.1-43.9); Red Blood Count 3.82 M/mm3 (4.2-5.4); White Blood Count 14.2 K/mm3 (4.4-11.0)
[2018-08-16 16:04] LABS: Glucose Challenge Gest 1H 50g 142 mg/dL (70-140)
[2018-08-16 16:08] LABS: Scan Indicated on CBC? Y/N NO
== END ==
PROVIDERS: Visit Provider Obstetrics & Gynecology
DX: Z34.83 Encounter for supervision of other normal pregnancy, third trimester (principal); Z3A.00 Weeks of gestation of pregnancy not specified
CPT/HCPCS: 36415; 82950; 85027

== ENCOUNTER → 2018-08-23 10:06 | Outpatient (CLI) | payer MEDICAID, SELFPAY ==
[2018-08-23 10:49] LABS: Glucose GTT-Gestation. Fasting 90 mg/dL (<105)
[2018-08-23 12:11] LABS: Glucose GTT-Gestational 1 Hr 160 mg/dL (<190)
[2018-08-23 12:45] LABS: Glucose GTT-Gestational 2 Hr 152 mg/dL (<165)
[2018-08-23 13:55] LABS: Glucose GTT-Gestational 3 Hr 107 L (<145)
== END ==
PROVIDERS: Referring Provider Obstetrics & Gynecology; Visit Provider Obstetrics & Gynecology
DX: O24.912 Unspecified diabetes mellitus in pregnancy, second trimester (principal); Z3A.00 Weeks of gestation of pregnancy not specified
CPT/HCPCS: 36415; 82951; 82952

== ENCOUNTER → 2018-09-26 16:12 | Outpatient (CLI) | payer MEDICAID, SELFPAY | PROVIDERS: Visit Provider Obstetrics & Gynecology | DX: Z36.85 Encounter for antenatal screening for Streptococcus B (principal) | CPT/HCPCS: 87077; 87081; 87186 ==

== ENCOUNTER 2018-09-28 21:53 | Outpatient (CLI) | payer MEDICAID, SELFPAY ==
[2018-09-28 22:48] LABS: Mucous, Urine 0 SEEN /hpf (<or=2+)
[2018-09-28 22:54] VITALS: BMI 27.6
[2018-09-28 23:08] LABS: Color, Urine Yellow (Yellow); Ketone-Dipstick Negative (Negative); Leukocyte Esterase-Dipstick 500 /ul (Negative); Nitrite-Dipstick Negative (Negative); Occult Blood-Urine 50 /ul (Negative); Urine Bilirubin Dipstick Negative (Negative); Urine Clarity Sl. Cloudy (Clear); Urine Urobilinogen Normal (Normal)
[2018-09-28 23:17] LABS: Protein-Dipstick 30 mg/dl (Negative)
[2018-09-28 23:19] LABS: Glucose, Dipstick 50 mg/dl (Normal); Specific Gravity, Urine 1.015 (1.002-1.030)
[2018-09-28 23:31] LABS: Bacteria 1+ /hpf (None Seen); Squamous Epithelial Cells - UA 5-10 SEEN /hpf (5-10); White Blood Cells 5-10 SEEN /hpf (0-5)
[2018-09-28 23:32] LABS: Red Blood Cells-Urine 0-5 SEEN /hpf (0-5)
--- NOTE | 2018-09-29 04:47 | OB.TRI.PN_ITS ---
Progress Notes Date of Service: 09/29/18 Progress Note: 43-year-old at 34 and 6 presents with intermittent dysuria denies any fevers or flank pain. heart tones 140 moderate variability reactive no decelerations category 1 tracing [place]: Irregular contractions Assessment and plan 43-year-old at 34 weeks 6 days with UTI?recommend Macrobid. Urine culture sent. Follow-up in office as scheduled Laboratory Studies: Laboratory Tests 09/28/18 Range/Units 22:30 Urine Color Yellow (Yellow) Urine Clarity Sl. Cloudy (Clear) Urine pH 7.0 (5.0 - 8.0) Ur Specific [place] 1.015 (1.002-1.030) Urine Protein 30 H (Negative) mg/dl Urine Glucose (UA) 50 H (Normal) mg/dl Urine Ketones Negative (Negative) mg/dl Urine Occult Blood 50 H (Negative) /ul Urine Nitrite Negative (Negative) Urine Bilirubin Negative (Negative) mg/dL Urine Urobilinogen Normal (Normal) mg/dl Ur Leukocyte Esterase 500 H (Negative) /ul Urine RBC 0-5 SEEN (0-5) /hpf Urine WBC 5-10 SEEN (0-5) /hpf Ur Squamous Epith Cells 5-10 SEEN (5-10) /hpf Urine Bacteria 1+ (None Seen) /hpf Urine Mucus 0 SEEN (<or=2+) /hpf
== END 2018-09-28 23:55 | disposition home or self-care (01) ==
LOC: WPOUT 22:30 → WP 22:30
PROVIDERS: Referring Provider Obstetrics & Gynecology; Visit Provider Obstetrics & Gynecology
DX: O26.893 Other specified pregnancy related conditions, third trimester (principal); R30.0 Dysuria; Z3A.34 34 weeks gestation of pregnancy
CPT/HCPCS: 59025; 59050; 81001; 87077; 87086; 87088; 87186; 99218; G0378

== ENCOUNTER 2018-10-11 17:10 | Outpatient (CLI) | payer MEDICAID, SELFPAY ==
[2018-10-11 17:30] VITALS: BMI 27.3
--- NOTE | 2018-10-12 09:15 | OB.TRI.NOTE ---
History of Present Illness Was patient seen by the physician?: No Reason For Visit: BLEEDING Date of Service: 10/12/18 Final JUANIS: 11/03/18 Final JUANIS Source: US <20 weeks Gestational age: 36 Weeks and 6 Days History of Present Illness: 36+ week intrauterine presents for some vaginal bleeding after having an exam in the office today. Reports good movement. Minimal contractions noted by patient. Allergies Penicillins Allergy (Verified 09/28/18 22:55) Hives vancomycin Allergy (Verified 09/28/18 22:55) Hives NST - FHR Rate Baby A NST Reactive:: Yes FHR Category:: Category I Impression/Plan 36+ week intrauterine with third trimester bleeding. Likely from examination in office today. Reactive nonstress test with minimal contractions noted. No cervical change noted on examination. Released to home with routine instructions and follow-up.
== END 2018-10-11 18:30 | disposition home or self-care (01) ==
LOC: WPOUT 17:16 → OBT 17:17
PROVIDERS: Referring Provider Obstetrics & Gynecology; Visit Provider Obstetrics & Gynecology
DX: O46.93 Antepartum hemorrhage, unspecified, third trimester (principal); Z88.0 Allergy status to penicillin; Z79.899 Other long term (current) drug therapy; Z3A.33 33 weeks gestation of pregnancy
CPT/HCPCS: 59050; 99218; G0378

== ENCOUNTER 2018-10-18 00:45 | Outpatient (CLI) | payer MEDICAID, SELFPAY ==
[2018-10-18 01:20] VITALS: BMI 27.8
[2018-10-18 01:34] LABS: Bacteria 0 SEEN /hpf (None Seen); Color, Urine Yellow (Yellow); Glucose, Dipstick 50 mg/dl (Normal); Leukocyte Esterase-Dipstick 100 /ul (Negative); Mucous, Urine 0 SEEN /hpf (<or=2+); Nitrite-Dipstick Negative (Negative); Occult Blood-Urine 10 /ul (Negative); Protein-Dipstick Negative (Negative); Red Blood Cells-Urine 0 SEEN /hpf (0-5); Urine Bilirubin Dipstick Negative (Negative); Urine Clarity Clear (Clear); Urine Urobilinogen Normal (Normal); Urine pH 6.5 (5.0 - 8.0)
[2018-10-18 01:36] LABS: Ketone-Dipstick 150 mg/dl (Negative)
[2018-10-18 01:40] LABS: Squamous Epithelial Cells - UA 5-10 SEEN /hpf (5-10); White Blood Cells 0-5 SEEN /hpf (0-5)
[2018-10-18 04:15] VITALS: RESP 18
--- NOTE | 2018-10-18 12:41 | OB.TRI.HP_ITS ---
History of Present Illness Was patient seen by the physician?: No Reason For Visit: R/O LABOR Date of Service: 10/18/18 Final JUANIS: 11/03/18 Final JUANIS Source: US <20 weeks Gestational age: 37 Weeks and 5 Days History of Present Illness: 37+ week intrauterine presents with some contractions. Denies any leaking of fluid. Good movement. Denies any vaginal bleeding. Allergies Penicillins Allergy (Verified 10/18/18 01:23) Rash vancomycin Allergy (Verified 10/18/18 01:23) Swelling swelled lips Laboratory Studies: Laboratory Tests 10/18/18 Range/Units 01:15 Urine Color Yellow (Yellow) Urine Clarity Clear (Clear) Urine pH 6.5 (5.0 - 8.0) Ur Specific [place] 1.010 (1.002-1.030) Urine Protein Negative (Negative) mg/dl Urine Glucose (UA) 50 H (Normal) mg/dl Urine Ketones 150 H (Negative) mg/dl Urine Occult Blood 10 H (Negative) /ul Urine Nitrite Negative (Negative) Urine Bilirubin Negative (Negative) mg/dL Urine Urobilinogen Normal (Normal) mg/dl Ur Leukocyte Esterase 100 H (Negative) /ul Urine RBC 0 SEEN (0-5) /hpf Urine WBC 0-5 SEEN (0-5) /hpf Ur Squamous Epith Cells 5-10 SEEN (5-10) /hpf Urine Bacteria 0 SEEN (None Seen) /hpf Urine Mucus 0 SEEN (<or=2+) /hpf Physical Exam Vitals: Vital Signs Resp 18 10/18/18 04:15 NST - FHR Rate Baby A NST Reactive:: Yes FHR Category:: Category I Uterine Activity:: Contractions every 5 to 10 minutes mild Impression/Plan 37+ week intrauterine with false labor. Monitor for several hours and no change. Labor instructions given. Reactive nonstress test. Routine follow- up otherwise.
== END 2018-10-18 04:15 | disposition home or self-care (01) ==
LOC: WPOUT 01:17 → WP 01:18
PROVIDERS: Referring Provider Obstetrics & Gynecology; Visit Provider Obstetrics & Gynecology
DX: O47.1 False labor at or after 37 completed weeks of gestation (principal); Z3A.37 37 weeks gestation of pregnancy; Z88.0 Allergy status to penicillin
CPT/HCPCS: 59025; 59050; 81001; 99218; G0378

== ENCOUNTER 2018-10-20 11:30 | Inpatient (IN) | payer MEDICAID, SELFPAY ==
[2018-10-20 11:14] VITALS: BMI 27.8
[2018-10-20 11:28] LABS: ROM Internal Control Test YES-OK TO RESULT pt. (Internal QC)
[2018-10-20 11:30] LABS: ROM Patient Test POSITIVE (Negative)
[2018-10-20] MEDS: Lactated Ringers 1,000 ML 50 ML IV ×3 (12:16→20:11)
[2018-10-20 12:21] LABS: Absolute Lymphocyte Count 1.52 X10^3/ul (0.83-4.51); Absolute Neutrophil Count 9.6 X10^3/uL (2.0-7.7); Basophil# 0.02 X10^3/uL; Basophil% 0.2 % (0-1); Eosinophil# 0.11 X10^3/uL; Eosinophils% 0.9 % (0-5); Hematocrit 31.7 % (37-47); Lymphocyte # 1.52 X10^3/ul (4.0); Lymphocyte % 12.3 % (19-41); Mean Corp Hgb Conc 31.5 g/gl (32-36); Mean Corpuscular Hgb 25.8 pg (27.0-32.0); Mean Corpuscular Volume 81.7 fL (81-99); Mean Platelet Vol. 10.6 fl (6.2-12.0); Monocyte# 0.99 X10^3/uL; Neutrophil # 9.62 X10^3/uL (2.7-7.7); Neutrophil % 77.6 % (47-70); Platelet Count 246 K/mm3 (150-450); RBC Distribution Width CV 15.8 % (11.6-14.6); RBC Distribution Width SD 46.8 fl (35.1-43.9); Red Blood Count 3.88 M/mm3 (4.2-5.4); White Blood Count 12.4 K/mm3 (4.4-11.0)
[2018-10-20 12:22] LABS: POSITIVE COUNT NO; POSITIVE DIFFERENTIAL NO; POSITIVE MORPHOLOGY NO
--- NOTE | 2018-10-20 13:23 | PCM.HPOB.BLA ---
History and Physical Date of Admission: 10/20/18 OB HISTORY AND PHYSICAL EXAMINATION History of this : 43 yo female Ab0 with EDC 11/03/2018 by 6 weeks 5 days Ultrasound, presents to Labor and Delivery at 38 wk EGA with CC of gush of fluid this am. ? yesterday also, but didn't come in. Plans eventual epidural Declines for now. care remarkable: A positive Rubella immune GBS positive. 1.) ABNORMAL Glucola, 3 hr GTT WNL 2.) Anemic 3.) STERILIZATION IF SECTION 4.) AMA 5.) Hx precipitous delivery 6.) contractions @ 32 wks x 2 with term deliveries. 7.) Pt. adopted unknown Family history. 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 Stress Allergies: Vancomycin Tightness of throat PCN rash Medications: During - levothyroxine 137 mcg capsule; Tablet 28 mg iron-800 mcg; ferrous sulfate 325 mg (65 mg iron) tablet; metronidazole 0.75 % vaginal gel; clotrimazole 1 % vaginal cream; levothyroxine 175 mcg tablet; famotidine 20 mg tablet Review of Systems: Non-contributory Headache. Requesting Ibuprofen (which reports she has taken off and on throughout ) PHYSICAL EXAMINATION General Appearance: 43 yo female in no acute distress Vital Signs: AF, VSS Heart: RRR without rubs or gallops Lungs: CTA x 2 Breasts: deferred Abdomen: gravid Pelvis: Cervix: 4 cm / 90 /-2 Presentation: cephalic Fetus: Size: AGA Movement: present Heart: 150s with avg variability Accels Category I tracing UCs irregular, spaced. Impression /Plan: Intrauterine . 38 wk female AMA. Grand multiparity SROM. GBS positive. Allergy to PCN (rash), and Vancomycin Admit for labor and delivery. Ancef IV for GBS positive. consider Pitocin augmentation after abx are in for at least 4 hrs. Wants epidural eventually, declines for now. See Progress Notes for Changes: Physician's Signature: Date:
[2018-10-20] MEDS: Acetaminophen 325 MG Tablet PO (13:35)
[2018-10-20] MEDS: Mag Hydrox/Al Hydrox/Simeth 30 ML UDC PO (14:00)
[2018-10-20] MEDS: Oxytocin 30 units/NS 500 ml 30 UNITS/500 ML IV.SOLN IV (16:12)
--- NOTE | 2018-10-20 16:18 | PCM.PN.BLA ---
Progress Note LABOR PROGRESS NOTE 38 wk SROM GBS positive and first dose of Ancef given (PCN allergy) AVSS EFM 140-150 avg variability and accels noted. Category I tracing UCs very irregular. 7-11 mins CX: essentially unchanged per RN exam from admission. A/P: 38 wk SROM. GBS positive. First abx dose given. Advised needs Pitocin, UCs inadequate. Offered epidural. Declines for now. Grand multip Advised that if she waits too long to get the epidural, there may not be time enough to allow this to work prior to delivery.
[2018-10-20] MEDS: fentaNYL-bupivacaine (epidural) 100 ML BAG EPIDURAL (17:11)
[2018-10-20] MEDS: Ondansetron 4 MG/2 ML Vial IV ×2 (17:45→21:11)
--- NOTE | 2018-10-20 17:55 | PCM.PN.BLA ---
Progress Note LABOR PROGRESS NOTE 38 wk SROM. Large forebag noted. AVSS Pitocin induction started EFM 140-150s avg variability. Accels UCs q 5-6 mins Poor pickup in some positions Guo to be inserted CX: /soft and stretchy AROM of forebag copious clear fluid noted and allowed fluid to egress while examining. HIGH.. Full bladder A/P: 38 wk SROM. AROM of forebag. Pitocin induction started a no change in cervix, irreg UCs after SROM. Comfortable w/ epidural. Guo insertion. Watch progress, descent. Anticipate
[2018-10-20] MEDS: Cefazolin 1 GM/50 ML BAG IV (20:11)
[2018-10-20] MEDS: Oxytocin 30 units/NS 500 ml 30 UNITS/500 ML IV.SOLN 334 UNITS IV (22:34)
--- NOTE | 2018-10-20 22:41 | DCINST_ITS ---
Discharge Diet: No Restrictions Discharge Activity: May Shower, May Take a Tub Bath May resume sexual activity in: 4-6 weeks Additional Activity Instructions:: Nothing in the vagina for 4-6 weeks. You may return to work/school in 6 weeks. Additional Instructions: If you experience any of the following, contact your healthcare provider. * Bleeding that soaks a pad every hour for 2 hours * Fever 100.4 or higher * Unrelieved abdominal pain * Problems urinating (including inability to urinate or burning while urinating). * Visual changes * Severe headache * Flu-like symptoms * Pain or redness in one of both of your breasts * Pain, warmth, tenderness or swelling in your legs, especially the calf area * Frequent nausea and vomiting * Symptoms of depression or anxiety If you experience any of the following, call 911 or go to the nearest Emergency Room. * Chest pain * Problems breathing * Seizure activity * Partial or complete paralysis of a body part, slurred speech, weakness or drooping of the face, or a sudden inability to walk or hold your balance Allergies/Adverse Reactions: Allergies Penicillins Allergy (Verified 10/18/18 01:23) Rash vancomycin Allergy (Verified 10/18/18 01:23) Swelling swelled lips Medications to take at Discharge Levothyroxine [Synthroid] 175 mcg PO DAILY 04/14/18 Pnv No.95/Ferrous Fum/Folic AC [ Caplet] 1 each PO DAILY 04/14/18 Ranitidine [Zantac] 150 mg PO BID 10/18/18 Please Follow Up With: Brunilda Lovelace MD - [phone] When: Call to make an appointment with your doctor in 6 weeks. If you had elevated Blood Pressure or 4th degree laceration you will need to be seen in 2 weeks. Primary Care Physician: Care Physician,No Primary [Primary Care Provider] - Test Results: Test results from this visit will be discussed in further detail at your follow- up appointment, if applicable. Proposed Discharge Date: 10/22/18
--- NOTE | 2018-10-20 22:43 | PCM.OPRPT ---
Vaginal Delivery Maternal Presentation: Active Labor, Spontaneous Rupture of Membranes 38 wk SROM Amniotic Membrane Rupture Type: Artificial - forebag Amniotic Fluid Description: Clear Final JUANIS: 11/03/18 Final JUANIS Source: US <20 weeks Gestational age: 38 Weeks and 1 Days Date of Procedure: 10/20/18 Pre-Operative Diagnosis: 38 wk SROM Post-Operative Diagnosis: Same Surgery/ Procedure Performed: Spontaneous Vaginal Delivery Anesthesiologist: Suzanna Granger Type of Anesthesia: Epidural Description of Procedure: of a greco male over intact perineum. Head delivered EDUARDO. OP and nares bulb suctioned at delivery , No nuchal cord noted. to maternal abdomen for drying and stimulation. Cord clamped times two and cut. Routine cord gases collected. Ap 8/9 PP exam: No lacerations. Placenta delivered by spont expulsion, expression 3V cord, normal appearing and intact with trailing membranes. EBL 350 cc Pt and tolerated delivery well. To recovery in stable condition. RayTec and needle counts correct times two. Presentation: Vertex, EDUARDO Placental Delivery Description: Spontaneous, Expressed Placenta Disposition: [facility] Cord Vessel Description: 3 Vessels Cord Gases drawn per routine: ABG, VBG Drain: Guo to straight drain Estimated Blood Loss: 350 Infant A gender: Male Episiotomy Description: None Laceration: None Medications given after delivery: IV Pitocin Complications: None
[2018-10-20] MEDS: Ibuprofen 600 MG Tablet PO (23:16)
[2018-10-21] MEDS: Oxytocin 30 units/NS 500 ml 30 UNITS/500 ML IV.SOLN 167 UNITS IV (00:04)
[2018-10-21 03:40] VITALS: BP 120/88; PULSE 110; RESP 18; TEMP 36.7
[2018-10-21] MEDS: Ibuprofen 600 MG Tablet PO ×3 (05:26→17:42)
[2018-10-21 06:39] LABS: Hematocrit 27.6 % (37-47); Hemoglobin 8.7 g/dl (12.0-15.0); Mean Corp Hgb Conc 31.5 g/gl (32-36); Mean Corpuscular Hgb 25.8 pg (27.0-32.0); Mean Corpuscular Volume 81.9 fL (81-99); Platelet Count 249 K/mm3 (150-450); RBC Distribution Width CV 15.8 % (11.6-14.6); RBC Distribution Width SD 45.4 fl (35.1-43.9); Red Blood Count 3.37 M/mm3 (4.2-5.4); White Blood Count 18.3 K/mm3 (4.4-11.0)
[2018-10-21 06:54] LABS: Scan Indicated on CBC? Y/N NO
--- NOTE | 2018-10-21 08:14 | PN.OBGYN_ITS ---
Subjective: PPD#[address] 2/2 swelling of perineum with pushing. Using ice pack prn. Asking if anything more should be done for swelling. Breast feeding OK. No concerns voiced. Plans to resume using the ibuprofen . (used also during ) - Physical Exam General: Alert, Oriented x3, Cooperative, No apparent distress HEENT: Atraumatic Neck: Supple Abdomen: Soft - Fundus firm NT at umbilicus. Neurological: Cranial nerves II-XII grossly intact Psych/Mental Status: Normal Affect Vital Signs Temp Pulse Resp BP 98.1 F 110 H 18 120/88 H 10/21/18 03:40 10/21/18 03:40 10/21/18 03:40 10/21/18 03:40 Weight: 73.6 kg Body Mass Index (BMI) 27.8 Intake and Output for Last 24 Hours 10/19/18 10/20/18 10/21/18 23:59 23:59 23:59 Intake Total 1639 / 1639 400 / 400 Output Total 300 / 300 3400 / 3400 Balance 1339 / 1339 -3000 / -3000 Laboratory Tests Past 24 Hrs 10/20/18 10/20/18 10/20/18 11:15 12:03 12:03 WBC 12.4 H RBC 3.88 L Hgb 10.0 L Hct 31.7 L MCV 81.7 MCH 25.8 L MCHC 31.5 L RDW 15.8 H RDW Differential 46.8 H Plt Count 246 MPV 10.6 Immature Gran % (Auto) 1.000 H Neut % (Auto) 77.6 H Lymph % (Auto) 12.3 L [place] % (Auto) 8.0 Eos % (Auto) 0.9 Baso % (Auto) 0.2 Absolute Neuts (auto) 9.6 H Absolute Lymphs (auto) 1.52 Total Counted Not Reportable Vag Amniotic Fld Detect POSITIVE H Blood Type A POSITIVE Antibody Screen NEGATIVE 10/21/18 06:25 WBC 18.3 H RBC 3.37 L Hgb 8.7 L Hct 27.6 L MCV 81.9 MCH 25.8 L MCHC 31.5 L RDW 15.8 H RDW Differential 45.4 H Plt Count 249 MPV 11.0 Immature Gran % (Auto) Neut % (Auto) Lymph % (Auto) [place] % (Auto) Eos % (Auto) Baso % (Auto) Absolute Neuts (auto) Absolute Lymphs (auto) Total Counted Vag Amniotic Fld Detect Blood Type Antibody Screen Medical Necessity - Tobacco Use Smoking Status: Never smoker Assessment/Plan PPD#1 Stable pp. D/C nazario today. Ice packs, routine pp care.
[2018-10-21] MEDS: Levothyroxine 175 MCG Tablet PO (08:36)
[2018-10-21 08:45] VITALS: BP 108/58; PULSE 78; RESP 16; TEMP 36.4
--- NOTE | 2018-10-21 09:38 | NURSING ---
Received report from David Hampton RN. I will assume care of patient at this time.
[2018-10-21] MEDS: Prenatal Vits Tablet 1 TABLET PO (11:46)
[2018-10-21 11:47] VITALS: BP 121/56; PULSE 93; RESP 16; TEMP 36.9; O2SAT 99
[2018-10-21 15:53] VITALS: BP 108/62; PULSE 84; RESP 16; TEMP 36.8; O2SAT 98
--- NOTE | 2018-10-21 16:16 | CASEMGMT ---
Social Work Labor and Delivery Social work consult noted for maternal history of many social stressors in recent past. Chart has been reviewed. Plan: See patient/mother of baby for assessment, likely in the morning, on 10-22-2018. -GIFTY Hannah, CONTRACT AGENT
[2018-10-21 20:00] VITALS: BP 107/61; PULSE 82; RESP 16; TEMP 36.9
[2018-10-22] MEDS: Ibuprofen 600 MG Tablet PO ×2 (02:50→10:59)
[2018-10-22 02:58] VITALS: BP 113/68; PULSE 83; RESP 18; TEMP 36.7
[2018-10-22] MEDS: Levothyroxine 175 MCG Tablet PO (06:05)
--- NOTE | 2018-10-22 08:25 | PCM.PN.OB ---
Subjective: PPD#2 Doing OK. Reports baby is in [facility] and being worked up for congenital herpes with skin changes noted on scalp Pt has no h/o HSV, or cold sores. States S.O. also no hx of HSV. Concerned. Likely to stay on hotel as baby not likely to go home today. - Physical Exam General: Alert, Oriented x3, Cooperative, No apparent distress HEENT: Atraumatic Neck: Supple Abdomen: Soft - Fundus firm NT at 2 cm inferior to umbilicus Psych/Mental Status: Normal Affect Vital Signs Temp Pulse Resp BP Pulse Ox 98.0 F 83 18 113/68 98 10/22/18 02:58 10/22/18 02:58 10/22/18 02:58 10/22/18 02:58 10/21/18 15:53 Oxygen Delivery Method Room Air Weight: 73.6 kg Body Mass Index (BMI) 27.8 Intake and Output for Last 24 Hours 10/20/18 10/21/18 10/22/18 23:59 23:59 23:59 Intake Total 1639 / 1639 400 / 400 Output Total 300 / 300 4400 / 4400 Balance 1339 / 1339 -4000 / -4000 Medical Necessity - Tobacco Use Smoking Status: Never smoker Assessment/Plan PPD#2 Stable pp. D/C home today but eligible for hotel status. Baby in [facility] and being worked up for congenital HSV. Pt w/o h/o HSV, no cold sores no genital herpes. Offered HSV type I and type II antibody testing . Will consider, but declined for now. To Hotel status
--- NOTE | 2018-10-22 11:06 | CASEMGMT ---
Social Work Labor and Delivery Baby is now admitted to the [facility]. This writer producer also provides social work to the [facility] for continuity of care of families. Presented to the [facility] to see patient/mother of baby. Curtains pulled and lights are off. Per [facility] RN the MOB has not had a lot of rest and is trying to rest at this time. This writer producer agreed to see MOB later in the day to try and allow for some time to get some rest. Will continue to follow and assist, plan to see MOB later today for assessment, now for both [facility] and for the SCN. -GIFTY Hannah, RESERVATION SALES AGENT
--- NOTE | 2018-10-23 09:28 | CASEMGMT ---
Social Work Assessment Labor and Delivery Unit Date of Referral: 10/21/2018 Time of Referral: 035 Referred By: Dr. Infante Date of Intervention: 10/22/2018 Time of Intervention: 153 Reason for Referral: social stressors over the last year; support and resources at time of assessment baby admitted to the [facility] History obtained from: medical records and mother of baby (MOB) Shilpa Xavier Educated MOB that for continuity of care of families this content writer also provides social work services to the [facility] and that assessment being completed for both [facility] and the [facility] Household composition: MOB, reported father of baby (FOB) Glen Tan, and 4 of MOB?s 5 older children. MOB reports home situation is safe and adequate. Patient's parent/guardian status: MOB is 43 year old divorces female and FOB is 37 year old first time father. ALEX has 5 children from previous marriage, divorce finalized in November of 2017 though had been for a couple of years prior to the divorce. MOB and FOB now have , Leo Tan born on 10-20-2016. MOB?s older children include: Saurabh (age 21), Beatrison (age 20), Oracio (age 18), Samm (age 16), and Kage (age 10). Saba lives out of the home as is attending college. MOB and FOB have been together for a year and do plan to get . MOB denies any form of abuse in relationship with FOB. Medical History: MOB is G6, P5 to 6 after delivering Leo. care good and starting at 9 week gestation. MOB with history of thyroid cancer and was adopted as a child. Baby Leo was born at 38 weeks gestation, weighed 8 pounds 12 ounces, Apgars 8 and 9 at 1 and 5 minutes of life respectively. Baby admitted to the [facility] for treatment of a rash on the head. Educational Status: MOB graduated high school, is able to read, write and to understand what is read. 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 FOB works as a warehouse team member for [employer] on second shift. Child support for the older minor children in the home. Infant Supplies: MOB reports to have needed supplies including bassinet, crib, car seat, clothing, diapers, wipes, bottles and plans to get breast pump. Childcare/Caregiver(s): MOB will be primary caregiver with help from FOB. When MOB returns to work the 18 year old will be helping out with baby care. Transportation: No issues. Programs/Agencies Involved: JFS for Medicaid only. No other agency involvement. Children Services/Legal Issues: No history of children services reported. No legal issues. Behavioral Health Issues: Mental Health History: MOB endorses some depression in the past but most prominently anxiety. MOB reports in the summer of 2017 was having some depression, there were many stressors going going on and MOB reports was not making the best decisions, and at that time had fleeting thoughts that others would be better off if MOB was . MOB denies that she ever formulated a plan, denies intent to take life and denies any past attempts. MOB reports the thoughts were short in duration, that got self busy and started to feel better. MOB did have a score of 10 prenatally on the [facility] Depression screen. Postnatally, on date of this assessment score is a 12. MOB reports was not as honest as should have been the first time taking the screen, that FOB was sitting right beside MOB and MOB did not want FOB to think that MOB was feeling so poorly because of the . MOB denies any thoughts in the last week, or during this about suicide or that life would be better of . MOB does endorse anxiety, not wanting to be a failure to others, and blaming self for things unnecessarily. MOB has no history of medication or counseling but reports has been considering both. Substance Use History: MOB reports has drank in the past, that works around alcohol, but that drinking has never been problematic and no one has ever told MOB they are concerns about MOB?s level of drinking. MOB denies use during . MOB reports history of marijuana use prior to and has no plans to restart again, especially while breast feeding. MOB denies history of any other drug use including heroin, cocaine, and meth. Family History: MOB was adopted so information about biological family is unknown. MOB reports her adopted brother did have addiction issues and by overdose a few years ago. One of MOB?s sons with history of depression and anxiety. Drug Screens: none noted in the chart. Family/Social Stressors: MOB was the primary caregiver to her mother who was on hospice for many months. ALEX?s mother lived with ALEX while on hospice, passing away April 15, 2018. MOB repots this was a very hard time. NAGA?s father and sister have recently been diagnosed with cancer. ALEX was from her for years and divorce finalized less than a year ago. Support Systems: MOB reports FOB is both a practical and emotional support to MOB. Additional practical support from MOB?s older children. NAGA has large family that would be helpful, but MOB admits that the family can be overwhelming. ASSESSMENT: Met with MOB initially at baby?s bedside in the [facility]. FOB holding baby. MOB appearing tense as evidenced by tense body language, intense stare, and short stilted answers. Educated MOB that this content writer likes to talk to mothers alone for a few topics and asked if could return to MOB?s room. MOB agreed. While talking to MOB in her room at [facility], MOB visibly relaxed and able to engage in spontaneous conversation. Eye contact, speech, and body movements normalized while meeting alone. MOB able to acknowledge and seems to be self aware of high anxiety right now. MOB talked about being on edge, worried about the baby, just wanting to know some answers as to what is wrong; negative thinking and self blaming regarding baby being in the [facility]. Supportive listening offered and encouragement given as well as redirected MOB that MOB is not to blame. MOB admits that tends to care for others, but does try to take some time for self when feeling overwhelmed. MOB reports keeping self busy/distraction helps manage anxiety, and does use deep breathing when feels anxiety coming on. MOB reports trying to take one thing at at time right now, that has been talking to FOB about worries and FOB has been helping to keep MOB grounded. MOB is aware of shaken baby prevention and safe sleeping. MOB educated to depression and anxiety, reviewed depression scale and educated that screen shows depressive symptoms present, encouraging MOB to self-care, consider counseling and/or medications. MOB reports will consider and talk with doctor if symptoms start to impact care of self or others. MOB also receptive to having a list of counselors in the area, not opposed to counseling ad MOB did have one of her children go to counseling when the child developed depression and anxiety. Provided MOB with list of counseling agencies in [place], an [facility] resources list and packet about depression and anxiety. MOB agrees to let doctor know if symptoms worsen and start to impact care of self and children. MOB pleasant, cooperative and expressed thanks for information. PLAN: MOB is discharged from [facility] and going to hotel status while baby remains hospitalize. Resources for home going have been provided. No other services requested or indicated for MOB as a patient of [facility]. Director Of Photography to continue to follow this family while baby remains a patient on the [facility]. -MARIELOS Hannah, CITY CLERK
== END 2018-10-22 12:00 | disposition home or self-care (01) | DRG 560 ==
LOC: WPOUT 11:42 → WP 22:48
PROVIDERS: Admitting Provider Obstetrics & Gynecology; Referring Provider Obstetrics & Gynecology; Visit Provider Obstetrics & Gynecology
DX: O99.824 Streptococcus B carrier state complicating childbirth (principal); R01.1 Cardiac murmur, unspecified; Z88.0 Allergy status to penicillin; Z85.850 Personal history of malignant neoplasm of thyroid; Z3A.38 38 weeks gestation of pregnancy; Z37.0 Single live birth
CPT/HCPCS: 59025; 59050; 81001; 84112; 85025; 85027; 86850; 86900; 99218; J7120; G0378; J2405

== ENCOUNTER 2018-12-26 05:46 | Day surgery (SDC) | payer MEDICAID, SELFPAY ==
[2018-12-20 11:58] LABS: Hemoglobin 12.6 g/dL (12.0-15.0); Mean Corp Hgb Conc 30.7 g/dL (32-36); Mean Corpuscular Hgb 26.7 pg (27.0-32.0); Mean Corpuscular Volume 86.9 fL (81-99); Mean Platelet Vol. 11.2 fl (6.2-12.0); Platelet Count 241 K/mm3 (150-450); RBC Distribution Width CV 15.5 % (11.6-14.6); RBC Distribution Width SD 49.6 fl (35.1-43.9); Red Blood Count 4.72 M/mm3 (4.2-5.4); White Blood Count 5.6 K/mm3 (4.4-11.0)
[2018-12-20 12:10] LABS: International Normalized Ratio 0.9; Partial Thromboplast Time 22.2 Seconds (24.1-36.2); Prothrombin Time (Protime)PT. 12.3 SECONDS (11.7-14.9)
[2018-12-20 13:04] LABS: BUN 17 mg/dL (7-18); Creatinine, Serum 0.64 mg/dL (0.55-1.02); Glucose 101 mg/dL (74-106)
[2018-12-20 13:05] LABS: Anion Gap 9 (5-15); BUN/Creat Ratio 26.5 RATIO (10-20); Calcium,Total 9.3 mg/dL (8.5-10.1); Chloride 110 mmol/L (98-107); EST Glomerular Filtration Rate 108 mL/min (>60); Est Glom Filt Rate - Afr Amer 131 mL/min (>60); Potassium 3.9 mmol/L (3.5-5.1); Sodium Level 144 mmol/L (136-145); Thyroid Stim Hormone (TSH) 0.01 uIU/mL (0.358-3.74)
[2018-12-20 14:37] LABS: Free T3 3.9 pg/mL (2.18-3.98); T4 Free Direct 1.66 ng/dL (0.76-1.46)
[2018-12-20 17:14] LABS: Ferritin 11 ng/mL (8-252)
--- NOTE | 2018-12-25 07:12 | PCM.HPOB.BLA ---
- Problem List (1) Encounter for sterilization Status: Acute History and Physical Date of Admission: 12/26/18 Surgical History and Physical Date: 12/25/2018 Name: SHILPA VALERA Age: 43 Date of : 1975 Shilpa Valera, a 43 year old female 6 0 0 0 6, presents for Laparoscopic bilateral salpingectomy on December 26, 2018 at 7:15. -- Trupti is here today for her pre op appointment. Patient is scheduled to have Bilateral tubal 12/26/2018. Patient states that she has already had her pat phone call from [facility] and states that she is to take thyroid medication prior to surgery on . She is planning to have labs done today after appointment in the office. Consents signed. Patient denies any other questions or concerns at this time. jlb as above. [facility] MEDICATIONS HISTORY: Patient is also takin. levothyroxine 175 mcg tablet, One tablet by mouth daily ALLERGIES: PCN, Hives, Vancomycin, Penicillins, Hives and/or rash, Vancomycin and Swelling (non-specific) Infections - chicken pox Illnesses - Murmur and Thyroid Ca Accidents - no injuries of consequence Hospitalizations - Childbirth frequent UTIs; Review of Systems: GENERAL - Denies fever, or chills SKIN - Denies skin changes EYES - Denies visual changes EARS - Denies difficulty hearing NOSE - Denies nasal congestion or bleeding MOUTH - Denies sore throat or difficulty swallowing NECK - Denies pain or swelling RESPIRATORY - Denies shortness of breath or wheezing CARDIOVASCULAR - Denies palpitations or chest pain GASTROINTESTINAL - Denies nausea, vomiting, diarrhea, constipation GENITOURINARY - Denies dysuria, frequency of urination, incontinence of urine MUSCULOSKELETAL - Denies joint or muscle pain NEUROLOGICAL - Denies localized numbness or weakness PSYCHIATRIC - Denies depression or anxiety ENDOCRINE - Denies heat or cold intolerance, weight loss or gain HEMATO-IMMUNOLOGIC - Denies excesive bleeding with cuts SOCIAL HISTORY: Alcohol Use - denies drinking Smoking - Never Diet - balanced Diet Lifestyle - high stress lifestyle Exercise - active Seat Belt Use - always Employer - [employer] Job Description - head waiter/waitress banquet Illicit Drug Use - denies use of street drugs Sexual Activity - ACTIVE [employer] PARTNER Residence - Lives with SO Place of - [place], [place] Hours Worked - 36-38 hours Spouse-Sig Other Name - Luis Fosterier Spouse-Sig Other Occupation - [employer] Spouse-Sig Other Phone No - [phone] Children Name(s) - Saurabh, Saba, Oracio, Kathleen Quijano [place] Control - planning tubal FAMILY HISTORY: Family history of Pt. is adopted. MENSTRUAL HISTORY: LMP Known?- , LMP - 10/20/18, Age Onset Menarche - 14 PAST PREGNANCIES: Total Pregnancies - 6; Full Term Pregnancies - 6; Premature - 0; Abortions, Induced - 0; Abortions, Spontaneous - 0; Ectopics - 0; Multiple Births - 0; Living Children - 6 SURGICAL HISTORY: 1. Tonsillectomy ; - 2. wisdom teeth ; - 3. 04/20/2010 Thyroidectomy (full) ; - thyroid ca 4. 05/13/2010 Radioactive Iodine ; - PHYSICAL EXAM BP- 136/86 Sitting, Right arm, regular cuff Temp- 98.1 Taken Orally Weight- 146.73271 lbs Height- 64 inch BMI:25.11 CONSTITUTIONAL - NAD, well nourished, and well developed SKIN - No rash, lesions, or ulcers HEENT - normocephalic, atraumatic, sclerae anicteric, normocephalic, atraumatic and sclerae anicteric LUNGS - CTA x2 without wheezes, crackles or rales CARDIAC - Regular rate and rhythm without rubs, murmurs, or gallops ABDOMEN - Without hepatosplenomegaly, distention, masses, rebound, or guarding; normal bowel sounds; no hernias EXTREMITIES - No edema or calf tenderness NEUROLOGICAL - normal gait, normal balance, normal motor PSYCHIATRIC - A and O to time, place, person, mood and affect External Genitial Vagina - non-tender without lesions Urethra/Urethral Meatus - non-tender Bladder - non-tender Vagina - vaginal seay are pink and moist without loss of rugae and no evidence of atropy Cervix - without cervical motion tenderness and has normal size and features without evident lesions Uterus - 5-6 cm in size, mobile and nontender Adnexa - clear without massess or tenderness Pap - deferred ASSESSMENT/PLAN: 1. Encounter for Sterilization Request -Plan for laparoscopic bilateral salpingectomy. Reviewed how performed, surgical risks/indications/benefits and alternatives. Declines alternative contraception. Preop instructions reviewed. NPO @ [facility] prior to procedure. Consents signed and reviewed. -Labs reviewed - pt s/p thyroidectomy with mild iatragenic hyperthyroidism - Synthroid decreased to 150mcg/day.
[2018-12-26 06:05] LABS: Internal QC Validated? YES +Cl - CLEAR BKGD; Pregnancy, Urine Negative Negative
[2018-12-26 06:11] VITALS: BP 117/62; PULSE 100; RESP 16; TEMP 36.9; O2SAT 100; BMI 24.9
[2018-12-26] MEDS: Lactated Ringers 1,000 ML 150 ML IV (06:24)
--- NOTE | 2018-12-26 07:15 | FALS_PTH ---
PATIENT: HUANG VALERA [place] [id number] AGE/SX: 43/F ROOM: RE12/26/[address]: Dr. Brunilda Don MD : 1975 BED: DIS: 12/26/2018 SPEC #: [id number] RECD: 12/26/18 08:47 STATUS: SOTERO RETamiko #: [id number] JAIME: 12/26/18 07:[address]: Brunilda Mcneil DEPT: SURGICAL PATHOLOGY RECD BY: Luis Alberto Alegria ENTERED: 12/26/18 11:06 SP TYPE: FALL TUBES OTHR DR: No Primary Care Phys Tissues: Fallopian tube Procedures: Surgery Specimen Level II HEADER OPERATION: Laparoscopic salpingectomy PRE-OP DIAGNOSIS: Sterilization request TISSUE SUBMITTED: Bilateral fallopian tubes MICROSCOPIC DIAGNOSIS Bilateral fallopian tubes, salpingectomy: Bilateral fallopian tubes including fimbrial ends, no pathologic diagnosis. SAMUEL:darvin 12/27/18 MICROSCOPIC DESCRIPTION Slides are reviewed. GROSS DESCRIPTION Received is one container labeled with the patient's name and designated bilateral fallopian tubes, tag on left. The specimen consists of two fallopian tubes with an average length of 5 cm and has an average diameter of 0.4 cm. Both fallopian tubes have normal fimbriated ends. No mass lesions are identified. [employer] sections are submitted in two cassettes as follows: 1 - right fallopian tube, 2 - left fallopian tube. / AM:darvin 12/26/18 TC:4 CPT: 38114 x2
[2018-12-26] MEDS: Bupivacaine 0.5% PF 10 ML VIAL (08:12)
--- NOTE | 2018-12-26 08:20 | OP.PCM_ITS ---
Problem List (1) Encounter for sterilization Status: Acute Report of Operation Date of Procedure: 12/26/18 Pre-Operative Diagnosis: Sterilization request Post-Operative Diagnosis: Sterilization request, cervical laceration Surgery/Procedure Performed:: Laparoscopic bilateral salpingectomy, cervical laceration repair Description of Surgical Findings:: Appearing uterus, bilateral tubes and ovaries. Patient is candidate for vaginal hysterectomy. industrial maintenance electrician: David Smith Type of Anesthesia:: General, Local Anesthesiologist: Vinod Simmons Bethany - CRNA Specimen's removed: 1. Right tube. 2. Left tube-tagged Drains: 75 mL urine Estimated Blood Loss (mL): 30 Fluids Replaced: 1000 mL Description of Procedure: The patient was taken to the operating room and sinus performed. She is placed in the dorsal supine position and induced under general anesthesia and intubated. She was then repositioned into dorsolithotomy and the arms were tucked at her sides. The perineum and abdomen were prepped and draped in sterile fashion. Patient was placed in the high lithotomy and a weighted speculum placed into the vagina. The cervix was grasped using a single-tooth tenaculum and a Dov cannula was placed and secured for uterine manipulation. The tenaculum had fallen off with cervical laceration present. The tenaculum was repositioned at the anterior cervical lip and the Dov cannula again secured. Patient was placed into low lithotomy and attention turned to the abdomen. An inferior umbilical incision was made using the scalpel and Veress needle was placed with successful hanging drop test and no aspirate. The abdomen was insufflated to 15 mmHg. The Veress needle was removed and trocar placed under laparoscopic guidance confirming atraumatic entry to the abdominal cavity. The patient was then placed into Trendelenburg. Right and left lower quadrant tap blocks were performed under laparoscopic guidance using half percent Marcaine. Incisions were placed and 5 mm trochars were inserted at the sites. The abdomen and pelvis were inspected with no appreciable pathologies. During inspection the tenaculum had attached from the cervix thus a sponge stick was placed vaginally for uterine manipulation. The right tubal fimbria was identified as well as the infundibulopelvic ligament. The mesosalpinx was transected using the Enseal device to the level of the uterine cornua and salpingectomy was performed with the Enseal. In similar fashion left salpingectomy was also performed. The tubes were removed via the trochars. The left tube was tagged with suture. The pelvis was reinspected and there was good hemostasis. The abdomen was desufflated, the patient was given several deep breaths for further expulsion of carbon dioxide. The trochars were removed and the incisional sites were closed using 4-0 Monocryl. Additional Marcaine was administered locally at each incisional site for a total of 18 cc. Steri-Strips and OpSite were placed over the incisions. Attention was turned to the perineum patient was placed into a high lithotomy. Cervical laceration was inspected and due to bleeding 3 [id number] sutures 0 Vicryl were placed with hemostasis obtained. The procedure was complete. The patient patient was placed into dorsal supine position, awakened, extubated and transferred to recovery room without complication. Sponge, needle counts were correct x2. - Complications None - Admit VTE Documentation VTE Present on Admission: No VTE Mechan Device Prophylaxis: SCD's VTE Pharm Prophylaxis ordered?: No
[2018-12-26 08:26] VITALS: BP 115/61; BP 117/62; PULSE 95; RESP 16; TEMP 36.2; O2SAT 97
[2018-12-26 08:30] VITALS: BP 111/62; BP 117/62; PULSE 78; RESP 16; O2SAT 98
--- NOTE | 2018-12-26 08:34 | DCINST_ITS ---
- Discharge Diagnoses Reason(s) for Visit for Discharge Instructions: Bilateral salpingectomy (tubal removal) You will use the following diet at home:: No restrictions Your food should be the consistency of: Regular Discharge Activity: Return to Normal Activity, May not drive while taking narcotic pain medications., May Shower, - - No tub bath for 1 week; No driving for 24-48 hours May resume sexual activity in: 4 weeks Lifting Restrictions: 10-20 lb Call your doctor if your incision/area has: Continuous Slow Oozing, Sudden Increased Bleeding, Increased Pain/ Swelling, Increased Redness Call your doctor if you observe: Fever of 101 or Higher, Inability to urinate, Inability to have a bowel movement, Using more than one pad per hour, Shortness of breath, Chest pain Suture Line Care: Avoid Pulling/Pushing Remove Dressing in (days):: 1 - remove tape strips on Sunday Cleanse incision/area with: Soap & Water Allergies/Adverse Reactions: Allergies Penicillins Allergy (Verified 12/26/18 06:10) Rash vancomycin Allergy (Verified 12/26/18 06:10) Swelling swelled lips Medications to take at Discharge Levothyroxine [Synthroid] 175 mcg PO DAILY 04/14/18 Pnv No.95/Ferrous Fum/Folic AC [ Caplet] 1 each PO DAILY 04/14/18 Docusate Sodium [Colace] 100 mg PO BID PRN PRN #60 cap 12/26/18 Ibuprofen 600 mg PO TID PRN #30 tab 12/26/18 Oxycodone [Oxyir] 5 mg PO Q6H PRN PRN 7 Days #15 tab 12/26/18 The following prescriptions were given: Docusate Sodium [Colace] 100 mg PO BID PRN PRN #60 cap PRN Reason: Constipation [facility] Ibuprofen 600 mg PO TID PRN #30 tab PRN Reason: Pain Transmission Status: [facility] Oxycodone [Oxyir] 5 mg PO Q6H PRN PRN 7 Days #15 tab PRN Reason: Severe Pain (6-10) Transmission Status[facility] Primary Care Physician: Care Physician,No Primary [Primary Care Provider] - Test Results: Test results from this visit will be discussed in further detail at your follow- up appointment, if applicable. Please Follow Up With: Brunilda Lovelace MD When: 2 weeks
[2018-12-26 08:45] VITALS: BP 100/51; BP 117/62; PULSE 65; RESP 16; O2SAT 95
[2018-12-26 09:00] VITALS: BP 109/72; BP 117/62; PULSE 62; RESP 16; TEMP 36.5; O2SAT 97
[2018-12-26 10:20] VITALS: BP 109/54; BP 117/62; PULSE 93; RESP 16; TEMP 36.4; O2SAT 94
== END 2018-12-26 10:26 | disposition home or self-care (01) ==
LOC: SDC 05:46 → AC 05:47
PROVIDERS: Referring Provider Obstetrics & Gynecology; Visit Provider Obstetrics & Gynecology
PROC: (CPT 58661; principal; 2018-12-26 07:00)
DX: Z30.2 Encounter for sterilization (principal); N99.71 Accidental puncture and laceration of a genitourinary system organ or structure during a genitourinary system procedure; E05.80 Other thyrotoxicosis without thyrotoxic crisis or storm; K21.9 Gastro-esophageal reflux disease without esophagitis; Z79.899 Other long term (current) drug therapy; Z85.850 Personal history of malignant neoplasm of thyroid
CPT/HCPCS: 57720; 58661; 36415; 80048; 81025; 82728; 84439; 84443; 84481; 85027; 85610; 85730; 86850; 86900; 86901; 88302; J7120; C1760; J2405

== ENCOUNTER → 2020-01-07 | Outpatient (CLI) | payer MEDICAID, SELFPAY ==
[2020-01-12 15:18] LABS: HPV APTIMA, High Risk Negative (Negative)
== END | disposition home or self-care (01) ==
LOC: LABSPEC 13:35
PROVIDERS: Visit Provider Obstetrics & Gynecology
DX: Z12.4 Encounter for screening for malignant neoplasm of cervix (principal)
CPT/HCPCS: 87624; 88175; G0145

== ENCOUNTER → 2020-10-19 12:01 | Outpatient (CLI) | payer MEDICAID, SELFPAY ==
[2020-10-19 13:08] LABS: Hematocrit 42.8 % (37-47); Mean Corp Hgb Conc 32.7 g/dL (32-36); Mean Corpuscular Hgb 30.1 pg (27.0-32.0); Mean Platelet Vol. 11.2 fl (6.2-12.0); Platelet Count 255 K/mm3 (150-450); RBC Distribution Width CV 11.8 % (11.6-14.6); RBC Distribution Width SD 39.6 fl (35.1-43.9); Red Blood Count 4.65 M/mm3 (4.2-5.4); White Blood Count 6.8 K/mm3 (4.4-11.0)
[2020-10-19 13:24] LABS: Ferritin 17 ng/mL (8-252); Iron 88 ug/dL (50-170); Iron Binding Capacity,Total 324 ug/dL (250-450)
== END ==
PROVIDERS: Visit Provider Obstetrics & Gynecology
DX: N92.0 Excessive and frequent menstruation with regular cycle (principal)
CPT/HCPCS: 36415; 82728; 83540; 83550; 85027